=== PATIENT | female | born 1955 | race Caucasian/White ===

== ENCOUNTER → 2020-01-19 | Outpatient (CLI) | payer BC | LOC: EDBD 13:19 → M LABSMTC 13:19 | PROVIDERS: ATTEND Family Medicine | DX: Z11.59 Encounter for screening for other viral diseases (principal) ==

== ENCOUNTER 2021-10-14 12:56 | Emergency (ER) | payer BC, OTHER ==
[~2021-10-14] VITALS: Ht 177.8 cm; Wt 84.6 kg
[2021-10-14 14:04] LABS: BLOOD UREA NITROGEN 15 MG/DL (7-18); CALCIUM LEVEL 9.5 MG/DL (8.8-10.2); CARBON DIOXIDE LEVEL 27 MEQ/L (21-32); CHLORIDE LEVEL 109 MEQ/L (98-107); CREATININE FOR GFR 0.92 MG/DL (0.55-1.30); GLOMERULAR FILTRATION RATE > 60.0 (>45); GLUCOSE, FASTING 102 MG/DL (70-100); POTASSIUM SERUM 4.3 MEQ/L (3.5-5.1); SODIUM LEVEL 142 MEQ/L (136-145)
[2021-10-14] MEDS ORDERED: LISI40TA4 PO (15:04)
[2021-10-14] MEDS ORDERED: PRAV20TA2 PO (15:04)
[2021-10-14] MEDS ORDERED: AMLO1TAB24 PO (15:04)
[2021-10-14 17:25] VITALS: BP 145/71
== END 2021-10-14 17:26 | disposition home or self-care (01) ==
LOC: M ED 12:56
DX: U07.1 COVID-19 (principal); I10 Essential (primary) hypertension; E78.00 Pure hypercholesterolemia, unspecified